=== PATIENT | female | born 1935 | race Native Hawaiian/Other Pacific Islander ===

== ENCOUNTER 2017-08-04 11:48 | Emergency (ER) | payer MEDICARE, OTHER ==
[2017-08-04 12:07] VITALS: O2SAT 95
--- NOTE | 2017-08-04 12:32 | C.PDOC ---
History Of Present Illness 81 year old female with Hx of DM and dementia presents to the ED accompanied by her son after she passed out while grocery shopping. As per Son, patient was grocery shopping when he noticed her face drooping down, he tried to talk to her but she did not respond and then collapsed. He states after he sat her up and she was sitting down for a few minutes she states feeling ok. Patient was hospitalized 1 month ago for pneumonia, currently she is c/o chronic lip and right hand numbness that according to her has been going on for a couple of years. Patient denies any blurry vision, incontinence, head injury, headache, fever, nausea, vomit, weakness. Time Seen by Provider: 08/04/17 12:20 Chief Complaint (Nursing): Syncope History Per: Patient, Family History/Exam Limitations: no limitations Onset/Duration Of Symptoms: Hrs Current Symptoms Are (Timing): Gone Number Of Syncopal Episodes: 1 Activity At Onset Of Symptoms: Standing Associated Symptoms Preceding Syncopal Episode: No Predromal Symptoms (Sudden Onset) Seizure Or Post-ictal Symptoms: None Fall Associated With With Symptoms: No Recent travel outside of the [place]: No Additional History Per: Patient, Family Past Medical History Reviewed: Historical Data, Nursing Documentation, Vital Signs Vital Signs: Last Vital Signs Temp 98.3 F 08/04/17 14:45 Pulse 64 08/04/17 17:58 Resp 16 08/04/17 17:58 BP 121/55 L 08/04/17 17:58 Pulse Ox 95 08/04/17 17:59 - Medical History PMH: COPD, Dementia, Diabetes, HTN, Hypercholesterolemia, Pulmonary Embolism Denies: Anxiety, Asthma, Osteoporosis (denies), Chronic Kidney Disease Surgical History: Appendectomy Family History: States: Unknown Family Hx - Social History Hx Tobacco Use: No Hx Alcohol Use: No Hx Substance Use: No - Immunization History Hx Tetanus Toxoid Vaccination: Yes Hx Influenza Vaccination: Yes Hx Pneumococcal Vaccination: Yes Review Of Systems Constitutional: Negative for: Fever, Chills Eyes: Negative for: Vision Change Cardiovascular: Negative for: Chest Pain, Palpitations Respiratory: Negative for: Cough, Shortness of Breath Gastrointestinal: Negative for: Nausea, Vomiting, Abdominal Pain Genitourinary: Negative for: Incontinence Musculoskeletal: Negative for: Neck Pain Skin: Negative for: Rash Neurological: Positive for: Numbness (lip and righ hand). Negative for: Weakness, Headache, Dizziness Physical Exam - Physical Exam Appears: Non-toxic, No Acute Distress Skin: Normal Color, Warm, Dry Head: Atraumatic, Normacephalic Eye(s): bilateral: Normal Inspection, PERRL, EOMI Nose: No Discharge, No Deformity Oral Mucosa: Moist, No Drooling Throat: Normal, No Erythema, No Exudate Neck: Normal ROM, Supple Chest: Symmetrical Cardiovascular: Rhythm Regular, No Murmur Respiratory: Normal Breath Sounds, No Rales, No Rhonchi, No Wheezing Gastrointestinal/Abdominal: Soft, No Tenderness, No Mass, No Distention, No Guarding, No Rebound Back: No CVA Tenderness Extremity: Normal ROM, No Pedal Edema, No Calf Tenderness, No Deformity, No Swelling Neurological/Psych: Normal Speech, Normal Cognition, Normal Cranial Nerves, Normal Motor, Normal Sensation, Normal Reflexes, Other (Oriented to place and person) Disoriented To: Time Gait: Steady ED Course And Treatment - Laboratory Results Result Diagrams: 08/04/17 13:26 08/04/17 13:26 O2 Sat by Pulse Oximetry: 95 (On RA) Pulse Ox Interpretation: Normal - CT Scan/US Lung Scan V/Q NM Other Rad Studies (CT/US): Interpreted By Me, Read By Radiologist, Radiology Report Reviewed CT/US Interpretation: COMPARISON: Portable chest 08/04/2017. TECHNIQUE: 7.1 mCi technetium 99-m Xe-133 Gas. 3.4 mCI technetium 99-m MAA administered intravenously. FINDINGS: VENTILATION COMPONENT: Absent activity at the right base due to markedly elevated right hemidiaphragm. PERFUSION COMPONENT: Matching absent activity at the right base due to marked the right hemidiaphragm. No delete definitive perfusion mismatches. IMPRESSION: Lowprobability ventilation perfusion scan for pulmonary embolism. Progress Note: asymptomatic and comfortable while in ED. D-dimer elevated. No resp sx and no chest pain. If V/Q neg may be discharged home. Disposition Doctor Will See Patient In The: Office Counseled Patient/Family Regarding: Studies Performed, Diagnosis, Need For Followup - Disposition Disposition: HOME/ ROUTINE Disposition Time: 18:05 Condition: STABLE Forms: [employer] ([place]) - Clinical Impression Clinical Impression: Fainting, Syncope - Scribe Statement The provider has reviewed the documentation as recorded by the Scribjazmyn Murphy All medical record entries made by the Igor were at my direction and personally dictated by me. I have reviewed the chart and agree that the record accurately reflects my personal performance of the history, physical exam, medical decision making, and the department course for this patient. I have also personally directed, reviewed, and agree with the discharge instructions and disposition.
[2017-08-04 13:30] LABS: BASO % 0.7 % (0.0-2.0); EOS # 0.3 K/uL (0.0-0.7); EOS % 4.7 % (0.0-4.0); HEMATOCRIT 33.5 % (34.0-47.0); LYMPH # 0.7 K/uL (1.0-4.3); LYMPH % 11.7 % (20.0-40.0); MEAN CELL VOLUME 91.3 fL (81.0-99.0); MEAN CORPUSCULAR HEMOGLOBIN 30.5 pg (27.0-31.0); MEAN CORPUSCULAR HGB CONC 33.4 g/dL (33.0-37.0); MEAN PLATELET VOLUME 7.4 fL (7.2-11.7); MONO # 0.3 K/uL (0.0-0.8); MONO % 5.3 % (0.0-10.0); NRBC % 0.1 % (0.0-2.0); RED CELL DISTRIBUTION WIDTH 14.5 % (11.5-14.5); WHITE BLOOD COUNT 6.4 K/uL (4.8-10.8)
[2017-08-04 13:42] LABS: ALB/GLOB RATIO 1.4 (1.0-2.1); BILIRUBIN,TOTAL 0.6 mg/dL (0.2-1.3); CALCIUM 9.1 mg/dl (8.6-10.4); POTASSIUM 4.3 mmol/L (3.6-5.2); TOTAL PROTEIN 7.6 g/dL (6.3-8.3)
[2017-08-04 13:53] LABS: TROPONIN I 0.012 ng/mL (0.00-0.120)
--- NOTE | 2017-08-04 17:54 | NM ---
COMPARISON: Portable chest 08/04/2017. TECHNIQUE: 7.1 mCi technetium 99-m Xe-133 Gas. 3.4 mCI technetium 99-m MAA administered intravenously. FINDINGS: VENTILATION COMPONENT: Absent activity at the right base due to markedly elevated right hemidiaphragm. PERFUSION COMPONENT: Matching absent activity at the right base due to marked the right hemidiaphragm. No delete definitive perfusion mismatches. IMPRESSION: Lowprobability ventilation perfusion scan for pulmonary embolism.
[2017-08-04 17:55] VITALS: TEMP 98.3
[2017-08-04 17:58] VITALS: RESP 16
[2017-08-04 18:02] VITALS: BP 121/55; PULSE 64
--- NOTE | 2017-08-04 18:15 | RAD ---
HISTORY: syncope COMPARISON: Chest radiograph 06/09/2017. FINDINGS: LUNGS: No definite acute infiltrate bilaterally. Chronic elevation the right hemidiaphragm is appreciated PLEURA: Trace right pleural effusion is not excluded versus interval fibrosis of the right costophrenic sulcus. None is seen the left. No pneumothorax bilaterally. CARDIOVASCULAR: Normal. OSSEOUS STRUCTURES: No significant abnormalities. VISUALIZED UPPER ABDOMEN: Normal. OTHER FINDINGS: None. IMPRESSION: Prior right hemidiaphragm elevation. Trace right pleural effusion difficult to exclude.
--- NOTE | 2017-08-08 22:55 | CARD ---
APPROVED REPORT EKG Measurement Heart [id number] <Conclusion> Normal sinus rhythm Cannot rule out Anteroseptal infarct, age undetermined Abnormal ECG
== END 2017-08-04 19:00 | disposition home or self-care (01) ==
LOC: C.ER 11:48
DX: R55 Syncope and collapse (principal); E78.00 Pure hypercholesterolemia, unspecified; E11.9 Type 2 diabetes mellitus without complications; I10 Essential (primary) hypertension; J44.9 Chronic obstructive pulmonary disease, unspecified; Z86.711 Personal history of pulmonary embolism; F03.90 Unspecified dementia, unspecified severity, without behavioral disturbance, psychotic disturbance, mood disturbance, and anxiety
CPT/HCPCS: 71010; 78582; 80053; 82948; 84484; 85025; 85378; 93005; 99285; A9540; A9558